=== PATIENT | female | born 1960 | race Caucasian/White ===

== ENCOUNTER 2020-12-22 09:22 | Emergency (ER) | payer MEDICARE, BC ==
[~2020-12-22] VITALS: Ht 167.6 cm; Wt 72.6 kg
[~2020-12-22 09:22] MED LIST: ACETAMINOPHEN RECTAL; ATIVAN1 MG PO; AZITHROMYCIN 2250 MG PO; COLACE 100 MG100 MG PO; DILAUDID 4 MG TA4 M1 PO; DILAUDID HP10 MG/M1; DILAUDID2 M1 PO; ERYTHROMYCIN250 MG PO; FENTANYL PA25 MCG/HR TOP; FENTANYL1 EAC1 TD; FLEXERIL PO; GAVILAX17 GM PO; HYDROCODON-ACE1 EAC5; IBUPROFEN 400400 M2 PO; LIDODERM 5%1 PATC1 TOP; LINZESS290 MCG PO; MAXALT MLT10 MG PO; MEDROLDOSEPACK; NEURONTIN 300300 M1 PO; NUVIGIL; OXYCONTIN20 M1 PO; PROTONIX40 M2 PO; REGLAN 10 MG TA10 MG PO; SYNTHROID50 MCG PO; TAMIFLU45 MG PO; TRANSDERM-SCO1 PATC1 TOP; VICODIN 5-5001 EACH PO; ZOFRAN4 MG PO
[2020-12-22] MEDS ORDERED: NAPROSYN500 MG PO (11:17)
[2020-12-22 11:37] VITALS: BP 121/65
== END 2020-12-22 11:39 | disposition home or self-care (01) ==
LOC: M.ERS 09:22
DX: S63.693A Other sprain of left middle finger, initial encounter (principal); G43.909 Migraine, unspecified, not intractable, without status migrainosus; Z79.899 Other long term (current) drug therapy; Z91.040 Latex allergy status; Z86.711 Personal history of pulmonary embolism; W22.8XXA Striking against or struck by other objects, initial encounter; Y93.89 Activity, other specified; Y92.89 Other specified places as the place of occurrence of the external cause; Y99.8 Other external cause status